=== PATIENT | male | born 1950 | race Caucasian/White ===

== ENCOUNTER 2017-09-12 23:58 | Emergency (ER) | payer OTHER ==
[~2017-09-12] VITALS: Ht 182.9 cm; Wt 107.5 kg
[~2017-09-12 23:58] MED LIST: ALLOPURINOL300 MG; ALTACE10 MG; CIPRO500 MG PO; ENDOCET 5/325 T1 TAB; GABAPENTIN300 MG; GLIMEPIRIDE2 MG PO; GLIMEPIRIDE4 MG; HUMALOG100 U/ML; HYZAAR 100-121 UDTAB PO; JANUMET 50-1,1 UDTAB; LANTUS100 U/ML; LIPITOR20 MG; LYRICA200 MG; METFORMIN HCL500 MG; METFORMIN HCL500 MG PO; NOVOLIN R; PERCOCET 5/3251 TAB PO; PREGABALIN; PREVACID15 MG; PYRIDIUM DS200 MG PO; TAMS0.4C; TRICOR145 MG PO; VASOTEC2.5 MG; ZOLOFT25 MG
[2017-09-13] MEDS ORDERED: ALTACE10 MG (00:14)
== END 2017-09-13 11:16 | disposition home or self-care (01) ==
LOC: ER 23:58
DX: R60.0 Localized edema (principal)

== ENCOUNTER 2017-11-06 23:00 | Emergency (ER) | payer OTHER ==
[~2017-11-06] VITALS: Ht 182.9 cm; Wt 106.6 kg
[2017-11-06] MEDS ORDERED: PERCOCET 5-3251 EACH (23:13)
== END 2017-11-07 07:31 | disposition home or self-care (01) ==
LOC: ER 23:00
DX: N21.1 Calculus in urethra (principal); N20.0 Calculus of kidney

== ENCOUNTER 2018-03-14 17:19 | Emergency (ER) | payer OTHER ==
[~2018-03-14] VITALS: Ht 182.9 cm; Wt 107.5 kg
[~2018-03-14 17:19] MED LIST changes: +PERCOCET 5-3251 EACH
== END 2018-03-15 05:10 | disposition home or self-care (01) ==
LOC: ER 17:19
DX: E11.65 Type 2 diabetes mellitus with hyperglycemia (principal); E86.0 Dehydration; B34.9 Viral infection, unspecified

== ENCOUNTER 2018-09-17 14:20 | Emergency (ER) | payer OTHER ==
[~2018-09-17] VITALS: Ht 182.9 cm; Wt 106.6 kg
[2018-09-17] MEDS ORDERED: ZOLOFT50 MG (15:00)
== END 2018-09-17 19:52 | disposition home or self-care (01) ==
LOC: ER 14:20
DX: M62.838 Other muscle spasm (principal)

== ENCOUNTER 2019-04-02 18:11 | Emergency (ER) | payer OTHER ==
[~2019-04-02] VITALS: Ht 182.9 cm; Wt 107.5 kg
[~2019-04-02 18:11] MED LIST changes: +ZOLOFT50 MG
== END 2019-04-02 21:39 | disposition home or self-care (01) ==
LOC: ER 18:11
DX: K59.09 Other constipation (principal); R33.8 Other retention of urine

== ENCOUNTER 2022-12-22 21:23 | Emergency (ER) | payer OTHER ==
[~2022-12-22] VITALS: Ht 182.9 cm; Wt 108.9 kg
[2022-12-22] MEDS ORDERED: TRAMADOL HCL E100 M1 (21:34)
[2022-12-22] MEDS ORDERED: ALTACE10 MG (21:34)
[2022-12-23] MEDS ORDERED: CIPRO500 MG PO (03:26)
[2022-12-23] MEDS ORDERED: PYRIDIUM DS200 MG PO (03:26)
== END 2022-12-23 03:47 ==
LOC: ER 21:23
PROVIDERS: General Practice
DX: N39.0 Urinary tract infection, site not specified (principal); R33.8 Other retention of urine; E11.9 Type 2 diabetes mellitus without complications; Z79.4 Long term (current) use of insulin; I10 Essential (primary) hypertension; Z88.8 Allergy status to other drugs, medicaments and biological substances; Z91.040 Latex allergy status
CPT/HCPCS: 36415; 51702; 96365; 96366; 99284; J0696; J1885; J3490

== ENCOUNTER 2023-02-27 16:26 | Inpatient (IN) | payer OTHER ==
[~2023-02-27] VITALS: Ht 182.9 cm; Wt 113.4 kg
[~2023-02-27 16:26] MED LIST changes: +TRAMADOL HCL E100 M1
[2023-02-27 18:13] LABS: HEMATOCRIT 43.9 % (39.0-48.0); HEMOGLOBIN 14.5 g/dL (13-16.00); MEAN CELL VOLUME 81.2 fL (80.0-100.00); MEAN CORPUSCULAR HEMOGLOBIN 26.8 pg (27.00-32.0); PLATELET COUNT 158 K/uL (150-450); RED BLOOD COUNT 5.41 M/uL (4.00-6.00); RED CELL DISTRIBUTION WIDTH 16.4 % (11.5-14.5)
[2023-02-27 18:28] LABS: ALBUMIN 3.3 gm/dL (3.4-5.0); BILIRUBIN TOTAL 0.75 mg/dL (0.3-1.2); CALCIUM 8.6 mg/dL (8.5-10.1); CREATININE SERUM 1.77 mg/dL (0.70-1.30); GFR 38.22; GLOBULINA 3.8 G/DL (2.4-3.5); POTASSIUM 4.92 mEq/L (3.5-5.1); TOTAL PROTEIN 7.1 gm/dL (6.4-8.2)
[2023-02-27 18:37] LABS: URINE APPEARANCE Turbid; URINE BILIRRUBIN Small (NEGATIVE); URINE BLOOD Large; URINE COLOR Orange; URINE LEUKOCYTE Large; URINE NITRATE Positive
[2023-02-27 18:40] LABS: URINE EPITHELIAL CELLS 51.9 uL (0.0-38.8); URINE RBC 1515.6 uL (0.0-20.8)
[2023-02-27 19:11] LABS: URINE GLUCOSE 500 MG/DL (NEGATIVE); URINE PROTEIN 300 (NEGATIVE); URINE WBC > 5548.3 uL (0.0-23.2)
[2023-02-28 07:07] LABS: PARTIAL THROMBOPLASTIN TIME 29.4 SECONDS (22.0-34.0); PROTHROMBIN TIME 10.5 SECONDS (9.0-11.5)
[2023-03-01 05:24] LABS: ALBUMIN 2.8 gm/dL (3.4-5.0); BILIRUBIN TOTAL 0.45 mg/dL (0.3-1.2); CREATININE SERUM 1.51 mg/dL (0.70-1.30); GFR 45.91; GLOBULINA 3.4 G/DL (2.4-3.5); MAGNESIUM 2.4 mg/dL (1.8-2.4); POTASSIUM 4.28 mEq/L (3.5-5.1); TOTAL PROTEIN 6.2 gm/dL (6.4-8.2)
[2023-03-01 05:31] LABS: C-REACTIVE PROTEIN 3.87 MG/DL (0.00-0.29)
[2023-03-01 06:16] LABS: HEMATOCRIT 41.6 % (39.0-48.0); HEMOGLOBIN 13.5 g/dL (13-16.00); MEAN CELL VOLUME 82.2 fL (80.0-100.00); MEAN CORPUSCULAR HEMOGLOBIN 26.7 pg (27.00-32.0); MEAN CORPUSCULAR HGB CONC 32.5 g/dl (32.0-36.0); PLATELET COUNT 145 K/uL (150-450); RED BLOOD COUNT 5.06 M/uL (4.00-6.00); RED CELL DISTRIBUTION WIDTH 16.7 % (11.5-14.5)
[2023-03-02 07:04] LABS: PH,URINE 5.5 (5.0-8.0); URINE APPEARANCE Turbid; URINE BILIRRUBIN Negative (NEGATIVE); URINE BLOOD Large; URINE COLOR Yellow; URINE LEUKOCYTE Large; URINE NITRATE Negative; URINE UROBILINOGEN 0.2 E.U./dl
[2023-03-02 07:07] LABS: URINE RBC 904.1 uL (0.0-20.8)
[2023-03-02 07:15] LABS: URINE GLUCOSE 250 MG/DL (NEGATIVE); URINE PROTEIN 300 (NEGATIVE); URINE WBC > 5548.3 uL (0.0-23.2)
[2023-03-02 13:12] LABS: HEMATOCRIT 40.9 % (39.0-48.0); HEMOGLOBIN 13.6 g/dL (13-16.00); MEAN CELL VOLUME 81.5 fL (80.0-100.00); MEAN CORPUSCULAR HGB CONC 33.1 g/dl (32.0-36.0); PLATELET COUNT 158 K/uL (150-450); RED BLOOD COUNT 5.02 M/uL (4.00-6.00); RED CELL DISTRIBUTION WIDTH 16.5 % (11.5-14.5)
[2023-03-02 13:43] LABS: CREATININE SERUM 1.37 mg/dL (0.70-1.30); GFR 51.37; POTASSIUM 4.22 mEq/L (3.5-5.1)
== END 2023-03-03 18:38 | disposition home or self-care (01) | DRG 690 ==
LOC: ER 16:26 → MEDJ 23:28
PROVIDERS: General Practice; Internal Medicine Infectious Disease; ADMIT Internal Medicine; ATTEND Internal Medicine
PROC: BW21ZZZ Computerized Tomography (CT Scan) of Abdomen and Pelvis (ICD-10-PCS; principal; 2023-02-27)
DX: N39.0 Urinary tract infection, site not specified (principal); Z16.12 Extended spectrum beta lactamase (ESBL) resistance; B96.20 Unspecified Escherichia coli [E. coli] as the cause of diseases classified elsewhere; N40.1 Benign prostatic hyperplasia with lower urinary tract symptoms; N41.8 Other inflammatory diseases of prostate; I10 Essential (primary) hypertension; Z20.822 Contact with and (suspected) exposure to COVID-19; E11.9 Type 2 diabetes mellitus without complications; Z79.4 Long term (current) use of insulin